=== PATIENT | male | born 1945 | race Caucasian/White ===

== ENCOUNTER 2016-11-07 13:34 | Emergency (ER) | payer MEDICARE ==
--- NOTE | 2016-11-07 14:22 | ERNOTE ---
Medical Problem HPI - General Chief Complaint: Fever Time Seen by Provider: 11/07/16 14:15 Source: patient Exam Limitations: no limitations - Immun/Allergies/Home Medications Immunizations: IMMUNIZATION HX Immunizations Up to Date Yes History of Influenza Vaccine Yes Hx Pneumococcal Vaccination Yes Allergies/Adverse Reactions: Allergies amoxicillin Adverse Reaction (Mild, Verified 11/07/16 13:43) Muscle Pain Home Medications: HOME MEDICATIONS NK [No Home Medication] 11/07/16 [Last Taken Unknown] - History of Present History Narrative: For five days the patient has had chills and subjective fever, runny nose, cough that is productive in the morning. He denies any other symptoms, had influenza vaccination, no known sick contacts Date (Duration): 11/03/16 Timing: constant Review of Systems - Review of Systems Constitutional: Present: fever, chills, malaise ENT: Present: nasal drainage. Absent: ear pain, sore throat Respiratory: Present: cough. Absent: shortness of breath Cardiology: Absent: chest pain Gastrointestinal/Abdominal: Absent: nausea, vomiting, abdominal pain Genitourinary: Present: no symptoms reported Musculoskeletal: Present: muscle pain - generalized ache Neurological: Absent: headache - Patient's Past Medical History Patient History - Medical: No pertinent hx Patient History - Cardiac/Respiratory: No pertinent hx Patient History - Cancer: No Hx of Cancer Patient History - Surgical Procedures: T & A, Other Patient History - Other: None - Social History Living Situations: home Abuse History: No History of abuse Psych History: No pertinent hx Smoking Status: Current every day smoker Cigarettes Packs Per Day: 1 Alcohol Use: other Drug Use: none - Immunizations Immunizations Up to Date: Yes Hx Pneumococcal Vaccination: Yes History of Influenza Vaccine: Yes Physical Exam - Physical Exam General Appearance: Present: wd/wn, alert, no apparent distress Eye Exam: Normal inspection: bilateral, PERRL: bilateral Ears, Nose, Throat: Present: nasal congestion, normal pharynx Neck: Present: normal inspection, nontender. Absent: limited range of motion, lymphadenopathy (R) Respiratory: Present: no respiratory distress, no accessory muscle use, lungs clear, decreased breath sounds Cardiovascular/Chest: Present: regular rate, rhythm, no murmur Neurological Exam: Present: alert, oriented, normal mood/affect Skin Exam: Present: normal color, warm/dry ED Progress - Results and Orders Patient's Lab Results:: I have reviewed the patient's lab results. - Vital Signs Patient's Vital Signs:: I have reviewed the patient's vital signs. Vital Signs: Vital Signs 11/07/16 13:38 Temperature 35.4 C L Pulse Rate 78 Respiratory 12 Rate Blood Pressure 167/75 O2 Sat by Pulse 100 Oximetry - X-Ray X-Ray #1 X-Ray: chest - chronic changes, no acute Interpretation: Reviewed by me - Progress/Reassessment Chief Complaint: Fever Progress Note-Subjective: 11/07/16 15:06 discussed results with patient, offered tylenol, patient will take own Departure - Departure Clinical Impression: Viral illness Disposition: Home self-care Condition: Good Instructions: Upper Respiratory Infection, Adult, [id number] Additional Instructions: take over the counter tylenol,vitamins follow up in the clinic if not better in 3-5 days
[2016-11-07 14:34] LABS: Hematocrit 44.8 % (42.0-52.0); Hemoglobin 15.1 gm/dL (13.5-18.0); Mean Corpuscular Hgb Conc 33.7 g/dl (32-36); Mean Platelet Volume 8.8 fl (6.0-9.5); Neutrophil # 4.4 K/mm3 (1.3-6.0); Platelet Count 238 K/mm3 (150-450); Red Blood Count 5.21 M/mm3 (4.7-6.0); Red Cell Distribution Width 14.5 % (11.5-14.0); White Blood Count 6.1 K/mm3 (4.0-10.5)
[2016-11-07 14:47] LABS: Albumin * 3.8 gm/dl (3.4-5.0); Anion Gap 13.1 mmol/L (6.8-13.8); BUN/Creatinine Ratio 11.4 (9.0-21.6); Bilirubin, Total 0.4 mg/dL (0.0-1.1); Ca. Corrected For Albumin 8.9 mg/dL (8.4-10.2); Calcium * 9.1 mg/dL (7.9-10.9); Potassium 4.1 mmol/L (3.4-4.6); Total Protein 8.1 gm/dL (6.2-8.2)
[2016-11-07 15:04] VITALS: BP 134/68
== END 2016-11-07 15:10 | disposition home or self-care (01) ==
LOC: ER 13:34
DX: B34.9 Viral infection, unspecified (principal); F17.210 Nicotine dependence, cigarettes, uncomplicated